=== PATIENT | female | born 1950 | race Two or more races ===

== ENCOUNTER 2020-10-30 06:15 | Day surgery (SDC) | payer OTHER ==
[~2020-10-30 06:15] MED LIST: COZAAR100 MG PO; SIMVASTA PO; TRILIPIX135 MG PO; [UNRECOGNIZED DRUG - OTHER] IV
== END 2020-10-30 16:40 | disposition home or self-care (01) ==
LOC: AMB-ENDOS 06:15
PROVIDERS: ATTEND Surgery
DX: D05.12 Intraductal carcinoma in situ of left breast (principal); Z20.822 Contact with and (suspected) exposure to COVID-19